=== PATIENT | female | born 1960 | race Caucasian/White ===

== ENCOUNTER 2016-11-12 12:31 | Emergency (ER) | payer BC ==
--- NOTE | 2016-11-12 12:54 | EDPHY ---
H & P Stated Complaint: R arm & ankle injury Time Seen by Provider: 11/12/16 12:53 HPI/ROS: CHIEF COMPLAINT: Right arm pain, right ankle pain following mechanical fall HISTORY OF PRESENT ILLNESS: The patient presents to the ED with right arm pain and right ankle pain following a mechanical fall. The patient was reportedly hiking 2.5 hours ago when she tripped and fell. The patient reported inversion type injury and subsequent landing on her right arm. She complains of pain in her right humerus and forearm. She denies associated numbness or weakness. REVIEW OF SYSTEMS: A comprehensive 10 point review of systems is otherwise negative aside from elements mentioned in the history of present illness. Source: Patient Exam Limitations: No limitations - Personal History Current Tetanus/Diphtheria Vaccine: Yes Current Tetanus Diphtheria and Acellular Pertussis (TDAP): Yes - Medical/Surgical History Hx Asthma: No Hx Chronic Respiratory Disease: No Hx Diabetes: No Hx Cardiac Disease: No Hx Renal Disease: No Hx Cirrhosis: No Hx Alcoholism: No Hx HIV/AIDS: No Hx Splenectomy or Spleen Trauma: No Other PMH: hyperthyroid - Social History Smoking Status: Never smoked - Physical Exam Exam: General Appearance: Alert, no distress Head: Atraumatic Eyes: Pupils equal, round, reactive ENT, Mouth: No hemotympanum, no oral trauma Neck: Nontender, trachea midline Respiratory: No chest wall tender, subcutaneous air, lungs clear bilaterally Cardiovascular: Regular rate and rhythm Abdomen: Abdomen is soft and nontender, pelvis stable Skin: No lacerations, No abrasion Back: No midline T/L/S pain Extremities: Tenderness to palpation right forearm and right humerus, no obvious deformity, no obvious soft tissue swelling or ecchymosis. Tenderness to palpation lateral aspect of medial malleolus Neurological: A&Ox3, normal motor function, normal sensory exam Constitutional: Initial Vital Signs Temperature (C) 36.8 C 11/12/16 12:32 Heart Rate 71 11/12/16 12:32 Respiratory Rate 16 11/12/16 12:32 Blood Pressure 123/69 H 11/12/16 12:32 O2 Sat (%) 97 11/12/16 12:32 O2 Delivery Mode Room Air Allergies/Adverse Reactions: Sulfa (Sulfonamide Antibiotics) Allergy (Verified 11/12/16 12:35) Medical Decision Making - Diagnostics Imaging Results: Imaging Impressions Ankle X-Ray 11/12/16 12:57 Impression: Soft tissue swelling laterally with a small lateral malleolar avulsion fracture. Humerus X-Ray 11/12/16 12:57 Impression: No acute abnormality. RIGHT ELBOW (4 Views, at 1:13 PM): There is displacement of the anterior and posterior humeral fat pads, consistent with a joint effusion. The radial head and neck are intact, as is the olecranon. The supracondylar humerus is intact. There is a small osteophyte associated with the coronoid process of the proximal ulna. Impression: While there is no convincing evidence of a fracture, within the setting of trauma and an elbow joint effusion, an occult fracture is suspected, and should be managed appropriately. RIGHT FOREARM (2 Views, at 1:53 PM): There is some mild dorsal forearm soft tissue swelling. There is the aforementioned elbow joint effusion. The radial and ulnar diaphyses are intact. The visualized aspects of the right wrist are unremarkable. Impression: While there is no acute fracture appreciated, the presence of an elbow joint effusion heightens suspicion for an occult fracture, which should be conservatively managed. Consider follow-up in 7-14 days, as clinically directed. Findings and recommendations were discussed with Manuel Becker at 14:10, on 11/12/2016. Elbow X-Ray 11/12/16 12:58 Impression: No acute abnormality. RIGHT ELBOW (4 Views, at 1:13 PM): There is displacement of the anterior and posterior humeral fat pads, consistent with a joint effusion. The radial head and neck are intact, as is the olecranon. The supracondylar humerus is intact. There is a small osteophyte associated with the coronoid process of the proximal ulna. Impression: While there is no convincing evidence of a fracture, within the setting of trauma and an elbow joint effusion, an occult fracture is suspected, and should be managed appropriately. RIGHT FOREARM (2 Views, at 1:53 PM): There is some mild dorsal forearm soft tissue swelling. There is the aforementioned elbow joint effusion. The radial and ulnar diaphyses are intact. The visualized aspects of the right wrist are unremarkable. Impression: While there is no acute fracture appreciated, the presence of an elbow joint effusion heightens suspicion for an occult fracture, which should be conservatively managed. Consider follow-up in 7-14 days, as clinically directed. Findings and recommendations were discussed with Manuel Becker at 14:10, on 11/12/2016. Forearm X-Ray 11/12/16 13:37 Impression: No acute abnormality. RIGHT ELBOW (4 Views, at 1:13 PM): There is displacement of the anterior and posterior humeral fat pads, consistent with a joint effusion. The radial head and neck are intact, as is the olecranon. The supracondylar humerus is intact. There is a small osteophyte associated with the coronoid process of the proximal ulna. Impression: While there is no convincing evidence of a fracture, within the setting of trauma and an elbow joint effusion, an occult fracture is suspected, and should be managed appropriately. RIGHT FOREARM (2 Views, at 1:53 PM): There is some mild dorsal forearm soft tissue swelling. There is the aforementioned elbow joint effusion. The radial and ulnar diaphyses are intact. The visualized aspects of the right wrist are unremarkable. Impression: While there is no acute fracture appreciated, the presence of an elbow joint effusion heightens suspicion for an occult fracture, which should be conservatively managed. Consider follow-up in 7-14 days, as clinically directed. Findings and recommendations were discussed with Manuel Becker at 14:10, on 11/12/2016. ED Course/Re-evaluation: The patient has been placed in a sugar-tong splint and given a sling given her elbow effusion and possibility of an occult radial head fracture. The patient will be advised to follow up with our on-call surgeon Dr. Tray Soto for recheck next week. The patient has been placed in an Kailash wrap for her ankle sprain. The patient will be discharged home with customary aftercare instructions and return precautions. Differential Diagnosis: Differential diagnosis considered includes upper extremity fracture, lower extremity fracture, neurovascular injury Departure - Departure Disposition: Home, Routine, Self-Care Clinical Impression: Elbow effusion Qualifiers: Laterality: right Qualified Code(s): M25.421 - Effusion, right elbow Ankle strain Qualifiers: Encounter type: initial encounter Laterality: right Qualified Code(s): S96.911A - Strain of unspecified muscle and tendon at ankle and foot level, right foot, initial encounter Condition: Good Instructions: Elbow Sprain (ED) Additional Instructions: 1. Take Ibuprofen or Motrin 600 mg by mouth three times a day. Please apply ice to area of tenderness and swelling 30 minutes at a time 4 to 5 times a day for the next several days. 2. Please wear splint as needed for comfort. Wear sling as needed. 3. Please follow up with the orthopedic surgeon you have been referred to next week for any persistent elbow. Your x-ray today does demonstrate evidence of swelling involving the joint but I see no obvious fracture. It is possible there is a fracture not seen on the x-ray today which is why we are recommending you follow up with Dr. Soto from Orthopedic surgery next week. Referrals: Tray Soto MD [Medical Doctor] - As per Instructions
[2016-11-12] MEDS ORDERED: HYDROCOD/APAP 5/325 PREPACK#6 BTL TAKEHOME ONE ×2 (14:52→14:53)
[2016-11-12] MEDS ORDERED: IBUPROFEN 600 MG TAB PO ONE ×2 (14:53)
[2016-11-12 15:55] VITALS: BP 110/74; PULSE 74; RESP 18; TEMP 98.1; O2SAT 95
== END 2016-11-12 15:55 | disposition home or self-care (01) ==
DX: S96.911A Strain of unspecified muscle and tendon at ankle and foot level, right foot, initial encounter (principal); M25.421 Effusion, right elbow; W01.0XXA Fall on same level from slipping, tripping and stumbling without subsequent striking against object, initial encounter; Y93.01 Activity, walking, marching and hiking